=== PATIENT | male | born 1975 | race Caucasian/White ===

== ENCOUNTER 2020-11-24 09:23 | Observation (INO) ==
[2020-11-24 10:55] LABS: Basophils # 0.2 10*3/uL (0.0-0.2); Basophils % 1.4 % (0.0-0.8); Eosinophils # 0.3 10*3/uL (0.0-0.87); Eosinophils % 2.4 % (0.00-10.9); Hematocrit 44.1 VOL% (42.0-52.0); Immature Granulocytes % 0.6 %; Immature Granulocytes Absolute 0.07 #; Lymphocytes # 1.4 10*3/uL (1.4-4.0); Lymphocytes % 12.3 % (21.2-54.2); Mean Corpuscular Volume 91.9 FL (87-102); Mean Platelet Volume 11.5 FL (9.6-12.0); Monocytes % 14.9 % (1.7-12.7); Neutrophils % 68.4 % (38.7-73.9); Platelet Count 382 T/CUMM (130-400); Red Cell Distribution Width 18.6 % (9.3-17.3); White Blood Count 11.1 T/CUMM (4-12)
[2020-11-24 11:11] LABS: Albumin 2.7 G/DL (3.4-5.0); Bilirubin,Total 8.4 MG/DL (0.2-1.0); Calcium 8.4 MG/DL (8.5-10.1); Total Protein 6.1 G/DL (6.4-8.2)
[2020-11-24 11:15] LABS: Band Neutrophils 1 % (0-10); Eosinophils 3 % (0-10); Lymphocytes 12 % (20-55); Platelet Estimate Adequate; Segmented Neutrophils 70 % (50-85); Total Cells Counted 100
[2020-11-24 11:30] LABS: Amorphous Crystals,Urine Moderate /HPF (Few); Blood, Urine Negative (Negative); Glucose,Urine (UA) Negative (Negative); Ketones,Urine Negative (Negative); Mucus,Urine Occasional /LPF (Occasional); Nitrite,Urine Negative (Negative); Protein,Urine Negative; Urine Appearance CLOUDY (Clear); Urine Color Amber (Yellow); Urine Specific Gravity 1.015 (1.001-1.035)
[2020-11-24 11:31] LABS: Bilirubin,Urine Moderate mg/dL (Negative)
[2020-11-24 11:50] LABS: PT Patient Result 11.5 SECS (10.5-12.0)
[2020-11-24 12:14] LABS: Albumin 2.7 G/DL (3.4-5.0); Bilirubin,Direct 6.94 MG/DL (0.0-0.20); Bilirubin,Indirect 1.8 MG/DL (0.0-1.0); Bilirubin,Total 8.7 MG/DL (0.2-1.0); Total Protein 6.2 G/DL (6.4-8.2)
[2020-11-24] MEDS ORDERED: ONDANSETRON 4 MG/2 ML VIAL IV PRN (13:05)
[2020-11-24] MEDS ORDERED: GLUCAGON 1 MG VIAL IM PRN (13:05)
[2020-11-24] MEDS ORDERED: NICOTINE 21 MG/24 HR PATCH TRANSDERM PRN (13:05)
[2020-11-24] MEDS ORDERED: DEXTROSE 50% 25 GM/50 ML VIAL IV PRN (13:05)
[2020-11-24 14:18] LABS: Hepatitis B Core IgM Quant > 9.00 Index; Hepatitis B Surface Ag Quant > 1000.00 Index; Hepatitis C Virus Ab Quant 0.05 Index; Hepatitis C Virus Ab Result Non-Reactive (NonReactive)
[2020-11-24 14:21] LABS: Hepatitis B Surface Ag Result Reactive (NonReactive)
[2020-11-24] MEDS: SODIUM CHLORIDE 0.9% 1,000 ML IV SCH (18:23)
[2020-11-24 21:16] LABS: Barbiturates Screen,Urine Negative (Negative); Benzodiazepines Screen,Urine Negative (Negative); Cannabinoid Screen,Urine Positive (Negative); Opiate Screen,Urine Negative (Negative); Phencyclidine Screen,Urine Negative (Negative)
[2020-11-24] MEDS ORDERED: MORPHINE 4 MG/1 ML VIAL IV PRN (21:40)
[2020-11-24] MEDS: PANTOPRAZOLE 40 MG VIAL IV SCH (21:52)
[2020-11-25] MEDS: SODIUM CHLORIDE 0.9% 1,000 ML IV SCH ×2 (00:44→09:34)
[2020-11-25] MEDS ORDERED: PANTOPRAZOLE 40 MG TABLET PO SCH (06:30)
[2020-11-25 06:31] LABS: Albumin 2.2 G/DL (3.4-5.0); Bilirubin,Total 6.3 MG/DL (0.2-1.0); Calcium 8.1 MG/DL (8.5-10.1); Osmolality,Calculated 270.8 MOS/KG (273-304); Potassium 3.9 MMOL/L (3.5-5.1); Total Protein 5.2 G/DL (6.4-8.2)
[2020-11-25 08:16] VITALS: BP 120/66
[2020-11-25] MEDS ORDERED: ENOXAPARIN 40 MG/0.4 ML SYRINGE SUBCUT SCH (09:00)
[2020-11-25] MEDS: PANTOPRAZOLE 40 MG VIAL IV SCH (09:35)
== END 2020-11-25 11:41 | disposition home or self-care (01) ==
LOC: N.5E 09:23 → N.ED 09:23 → N.5E 16:08
PROVIDERS: ADMIT Internal Medicine; ATTEND Internal Medicine